=== PATIENT | male | born 1990 | race African-American/Black ===

== ENCOUNTER 2016-08-16 20:41 | Emergency (ER) | payer OTHER ==
[~2016-08-16] VITALS: Ht 175.3 cm; Wt 118.2 kg
[~2016-08-16 20:41] MED LIST: FLEXERIL10 MG PO; MOTRIN600 MG PO; MOTRIN800 MG PO; NAPROSYN500 MG PO; NO HOME MEDS; NORCO 7.5/321 TABLET PO; OXAYDO5 MG PO; PEN-VEE K,VEET500 MG PO; PEPCID40 MG PO; PERCOCET 5/31 TABLET PO; TYLENOL WITH C1 EACH PO; ULTRAM50 MG PO; ZANTAC300 MG PO; ZOFRAN ODT4 MG PO; ZOFRAN ODT8 MG PO
[2016-08-16 21:48] LABS: MCH 21.8 PG (29.0-34.0); MCHC 30.9 G/DL (30.0-36.0); MCV 70.8 FL (86-99); MEAN PLAT.VOLUME 9.5 uM^3 (9.0-12.4); PLATELET COUNT 289 K/uL (156-360); RBC DIS.WIDTH-SD 38.4 % (39-53); WHITE BLOOD COUNT 11.7 K/uL (4.1-10.2)
[2016-08-16 21:49] LABS: AMYLASE 144 IU/L (1-118); CHLORIDE 104 mEq/L (99-109); POTASSIUM 4.1 mEq/L (3.7-5.4); SODIUM 139 mEq/L (136-147)
[2016-08-16 21:51] LABS: GLUCOSE 145 mg/dL (70-99)
[2016-08-16 21:52] LABS: ANION GAP 14 MEQ/L (2-14)
[2016-08-16 21:53] LABS: TOTAL BILIRUBIN 0.5 mg/dL (0.0-1.0)
[2016-08-16 21:54] LABS: ALKALINE PHOSPHATASE 82 IU/L (3-129)
[2016-08-16 21:55] LABS: GFR ESTIMATE (CALCULATED) > 59 mL/min/
[2016-08-16 21:56] LABS: UREA NITROGEN (BUN) 8 mg/dL (9-23)
[2016-08-16 21:58] LABS: LIPASE 12 U/L (1.0-51.0)
[2016-08-16 23:27] LABS: ADD MIUA? NO; BILIRUBIN NEGATIVE; BLOOD NEGATIVE; COLOR YELLOW ((YELLOW)); GLUCOSE (STRIP) NEGATIVE; KETONES NEGATIVE; LEUKOCYTES NEGATIVE; NITRITE NEGATIVE; PROTEIN (STRIP) 30; SPECIFIC GRAVITY 1.038 (1.000-1.030); UCUL ADDED? NO; UROBILINOGEN 0.2 MG/DL (0.2-1.0)
[2016-08-16 23:35] LABS: AMPHETAMINE NEGATIVE (500 ng/mL); BARBITURATES NEGATIVE (200 ng/mL); BENZODIAZEPINES NEGATIVE (150 ng/mL); COCAINE NEGATIVE (150 ng/mL); INTERNAL CONTROLS VALID? YES; METHADONE NEGATIVE (200 ng/mL); METHAMPHETAMINE NEGATIVE (500 ng/mL); OPIATES (MORPHINE) NEGATIVE (100 ng/mL); OXYCODONE NEGATIVE (100 ng/mL); PHENCYCLIDINE NEGATIVE (25 ng/mL); PROPOXYPHENE NEGATIVE (300 ng/mL); THC CANNABINOIDS PRESUMPTIVE POSITIVE (50 ng/mL); TRICYCLIC ANTIDEPRESSANTS NEGATIVE (300 ng/mL)
[2016-08-16 23:36] LABS: ADD MEDTOX COMMENT Y
[2016-08-16] MEDS ORDERED: PHENERGAN12.5 MG PR (23:45)
[2016-08-17 00:16] VITALS: BP 135/49
== END 2016-08-17 00:17 | disposition home or self-care (01) ==
LOC: EME 20:41
PROVIDERS: Physician Assistant
DX: K85.90 Acute pancreatitis without necrosis or infection, unspecified (principal); R06.02 Shortness of breath
CPT/HCPCS: 74177; 80053; 81003; 82150; 83690; 84999; 85027; 99281; 99285; J2405; J3010; J7030

== ENCOUNTER → 2016-09-29 | Outpatient (CLI) | payer OTHER ==
[~2016-09-29] VITALS: Ht 170.2 cm; Wt 136.3 kg
[~2016-09-29] MED LIST changes: +OMEPRAZOLE40 M1 PO; +PERCOCET 10/1 TABLET PO; +PHENERGAN12.5 MG PR
== END | disposition home or self-care (01) ==
LOC: AMB 13:30
PROC: 0DB68ZX Excision of Stomach, Via Natural or Artificial Opening Endoscopic, Diagnostic (ICD-10-PCS; principal; 2016-09-29)
DX: K29.60 Other gastritis without bleeding (principal); R11.2 Nausea with vomiting, unspecified; Z68.43 Body mass index [BMI] 50.0-59.9, adult
CPT/HCPCS: 88305; 88342 TC; J3010

== ENCOUNTER 2017-07-07 20:00 | Emergency (ER) | payer OTHER ==
[~2017-07-07] VITALS: Ht 167.6 cm; Wt 141.8 kg
[2017-07-07 20:33] LABS: HEMATOCRIT 46.3 % (38.0-50.0); HEMOGLOBIN 14.8 G/DL (12.5-16.6); MCH 22.4 PG (29.0-34.0); MCV 70.2 FL (86-99); PLATELET COUNT 279 K/uL (156-360); RBC DIS.WIDTH-SD 38.2 % (39-53); WHITE BLOOD COUNT 12.3 K/uL (4.1-10.2)
[2017-07-07 20:34] LABS: ALBUMIN 4.5 g/dL (3.2-4.8)
[2017-07-07 20:35] LABS: CHLORIDE 105 mEq/L (99-109); POTASSIUM 3.5 mEq/L (3.7-5.4); SODIUM 139 mEq/L (136-147)
[2017-07-07 20:37] LABS: GLUCOSE 120 mg/dL (70-99); TOTAL PROTEIN 7.9 g/dL (6.4-8.3)
[2017-07-07 20:39] LABS: TOTAL BILIRUBIN 0.7 mg/dL (0.0-1.0)
[2017-07-07 20:40] LABS: ALKALINE PHOSPHATASE 70 IU/L (3-129)
[2017-07-07 20:41] LABS: GFR ESTIMATE (CALCULATED) > 59 mL/min/ (58.99-99999)
[2017-07-07 20:42] LABS: AST (GOT) 21 IU/L (2-34); UREA NITROGEN (BUN) 12 mg/dL (9-23)
[2017-07-07 20:44] LABS: ALT (GPT) 38 IU/L (3-49); LIPASE 31 U/L (1.0-51.0)
[2017-07-07 23:21] VITALS: BP 140/87
== END 2017-07-07 23:27 | disposition left against medical advice (07) ==
LOC: EME 20:00
DX: R10.84 Generalized abdominal pain (principal); K92.0 Hematemesis; K21.9 Gastro-esophageal reflux disease without esophagitis; Z87.19 Personal history of other diseases of the digestive system; Z88.6 Allergy status to analgesic agent
CPT/HCPCS: 80053; 81003; 83690; 85027; 87502; 99281; 99284; J2765; J7030